=== PATIENT | male | born 1990 | race Caucasian/White ===

== ENCOUNTER → 2018-06-25 | Outpatient (CLI) | payer OTHER ==
[2018-06-25 10:24] LABS: BASO # 0.1 10^3/uL (0.0-0.2); BASO % 1.3 % (0.0-1.0); EOS # 0.1 10^3/uL (0.0-0.50); EOS % 1.7 % (0.0-3.0); HEMATOCRIT 50.3 % (42.0-52.0); HEMOGLOBIN 17.1 g/dl (13.5-17.5); IMMATURE GRANULOCYTE % 0.2 % (0-3.0); LYMPH # 1.2 10^3/uL (1.5-4.5); LYMPH % 25.1 % (24.0-44.0); MEAN CORPUSCULAR HEMOGLOBIN 30.2 pg (27.0-33.0); MEAN CORPUSCULAR VOLUME 88.9 fl (80.0-96.0); MONO # 0.6 10^3/uL (0.0-0.8); MONO % 12.7 % (0.0-5.0); NEUTROPHILS # 2.8 10^3/uL (1.8-7.7); PLATELET COUNT, AUTOMATED 225 10^3/uL (150-450); RED BLOOD COUNT 5.66 10^6/uL (4.30-6.10); RED CELL DISTRIBUTION WIDTH 11.8 % (11.5-14.5); WHITE BLOOD COUNT 4.8 10^3/uL (4.0-10.0)
[2018-06-25 10:54] LABS: ANION GAP 5 MEQ/L (8-16); BLOOD UREA NITROGEN 12 MG/DL (7-18); CALCIUM LEVEL 9.2 MG/DL (8.5-10.1); CARBON DIOXIDE LEVEL 32 MEQ/L (21-32); CHLORIDE LEVEL 107 MEQ/L (98-107); CREATININE FOR GFR 1.01 MG/DL (0.70-1.30); FERRITIN 75 NG/ML (26-388); GLOMERULAR FILTRATION RATE > 60.0 (>60); GLUCOSE, FASTING 85 MG/DL (70-100); IRON (FE) 89 UG/DL (65-175); PERCENT SATURATION 32.6 % (19.7-50.0); POTASSIUM SERUM 4.9 MEQ/L (3.5-5.1); SODIUM LEVEL 144 MEQ/L (136-145); TOTAL IRON BINDING CAPACITY 273 UG/DL (250-450)
[2018-06-25 11:01] LABS: VITAMIN B12 LEVEL 526 PG/ML
[2018-06-25 11:12] LABS: FOLATE > 24.0 NG/ML
== END ==
LOC: M LAB 09:46
DX: K62.5 Hemorrhage of anus and rectum (principal)
CPT/HCPCS: 82746

== ENCOUNTER 2018-10-07 09:14 | Day surgery (SDC) | payer OTHER ==
[~2018-10-07] VITALS: Ht 160 cm; Wt 66.2 kg
[~2018-10-07 09:14] MED LIST: AIMO70IN SC; AMIT50TA PO; MELA5TAB17 PO; NS 1,000 ML IV ONE; PROC2.5C PR; RELP20TA PO; VITA100067 PO
--- NOTE | 2018-10-07 12:08 | ROOR ---
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 Procedure: Pre-Anesthesia Assessment: - Prior to the procedure, a History and Physical was performed, and patient medications and allergies were reviewed. The patient is competent. The risks and benefits of the procedure and the sedation options and risks were discussed with the patient. All questions were answered and informed consent was obtained. Patient identification and proposed procedure were verified by the physician, the nurse and the anesthesiologist in the procedure room. Mental Status Examination: alert and oriented. Airway Examination: normal oropharyngeal airway and neck mobility. Respiratory Examination: clear to auscultation. CV Examination: normal. Prophylactic Antibiotics: The patient does not require prophylactic antibiotics. Prior Anticoagulants: The patient has taken no previous anticoagulant or antiplatelet agents. ASA Grade Assessment: I - A normal, healthy patient. After reviewing the risks and benefits, the patient was deemed in satisfactory condition to undergo the procedure. The anesthesia plan was to use no sedation or anesthesia. Immediately prior to administration of medications, the patient was re-assessed for adequacy to receive sedatives. The heart rate, respiratory rate, oxygen saturations, blood pressure, adequacy of pulmonary ventilation, and response to care were monitored throughout the procedure. The physical status of the patient was re-assessed after the procedure. The Colonoscope was introduced through the anus and advanced to the descending colon. The flexible sigmoidoscopy was accomplished without difficulty. The patient tolerated the procedure well. Scope insertion time was 2 minutes. Scope withdrawal time was 6 minutes. The total duration of the procedure was 9 minutes. Findings: The perianal and digital rectal examinations were normal. Normal mucosa was found in the proximal sigmoid colon and in the descending colon. Biopsies were taken with a cold forceps for histology. Verification of patient identification for the specimen was done by the physician and nurse using the patient's name, date and medical record number. Estimated blood loss was minimal. Diffuse severe mucosal changes characterized by altered vascularity, erosions, friability, granularity and loss of vascularity were found in the rectum, in the recto-sigmoid colon and in the distal sigmoid colon. Biopsies were taken with a cold forceps for histology. A few small and large-mouthed diverticula were found in the sigmoid colon. There was no evidence of diverticular bleeding. Non-bleeding external and internal hemorrhoids were found during anoscopy. The hemorrhoids were small. Retroflexion in the rectum was not performed due to anatomy. Impression: - Normal mucosa in the proximal sigmoid colon and in the descending colon. Biopsied. - Diffuse severe mucosal changes were found in the rectum, in the recto-sigmoid colon and in the distal sigmoid colon secondary to proctosigmoid colitis. Biopsied. - Mild diverticulosis in the sigmoid colon. There was no evidence of diverticular bleeding. - Non-bleeding external and internal hemorrhoids. Recommendation: - The patient will be observed post-procedure, until all discharge criteria are met. - Patient has a contact number available for emergencies. The signs and symptoms of potential delayed complications were discussed with the patient. Return to normal activities tomorrow. Written discharge instructions were provided to the patient. - Resume previous diet. - Await pathology results. - Based on the biopsy results you will receive a phone call from GI clinic in 2-3 weeks to review the pathology results AND/OR your results will be faxed to your Primary care physician. - Return to primary care physician. Humza Cardoso MD Humza Cardoso MD 10/07/2018 12:07:57 PM This report has been signed electronically. Number of Addenda: 0 Note Initiated On: 10/07/2018 11:39 AM Estimated Blood Loss: Estimated blood loss was minimal.
[2018-10-07 12:14] VITALS: BP 122/82
== END 2018-10-07 12:16 | disposition home or self-care (01) ==
LOC: M OPP 09:14
PROVIDERS: ATTEND Internal Medicine Gastroenterology
DX: K64.8 Other hemorrhoids (principal); K63.89 Other specified diseases of intestine; K57.30 Diverticulosis of large intestine without perforation or abscess without bleeding; K51.30 Ulcerative (chronic) rectosigmoiditis without complications

== ENCOUNTER → 2019-02-18 | Outpatient (REF) | payer OTHER ==
[~2019-02-18] MED LIST changes: -MELA5TAB17 PO; +MELA5TAB31 PO; -NS 1,000 ML IV ONE
[2019-02-18 18:58] LABS: APPEARANCE, URINE CLEAR (CLEAR); BACTERIA, URINE AUTO NEGATIVE (NEGATIVE); BILIRUBIN, URINE AUTO NEGATIVE (NEGATIVE); BLOOD, URINE BLOOD NEGATIVE (NEGATIVE); COLOR, URINE YELLOW (YELLOW); GLUCOSE, URINE (UA) AUTO NEGATIVE (NEGATIVE); KETONE, URINE AUTO NEGATIVE (NEGATIVE); LEUKOCYTE ESTERASE, URINE AUTO NEGATIVE (NEGATIVE); NITRITE, URINE AUTO NEGATIVE (NEGATIVE); PROTEIN, URINE AUTO NEGATIVE (NEGATIVE); RBC, URINE AUTO 2 /HPF (0-3); SPECIFIC GRAVITY URINE AUTO 1.021 (1.002-1.035); SQUAMOUS EPITHELIAL CELL UR AU 0 /HPF (0-6); WBC, URINE AUTO 0 /HPF (0-3)
== END ==
LOC: M SMT 18:08
PROVIDERS: ATTEND Nurse Practitioner Women's Health
DX: R35.0 Frequency of micturition (principal)

== ENCOUNTER → 2019-03-04 | Outpatient (CLI) | payer OTHER ==
[~2019-03-04] MED LIST changes: +GABA600T4 PO; +MYRB50TA PO; +TAMS1CAP17 PO; +VENL-115 PO
[2019-03-04 13:29] LABS: MEAN CORPUSCULAR HEMOGLOBIN 31.6 pg (27.0-33.0); MEAN CORPUSCULAR HGB CONC 33.9 g/dl (32.0-36.5); MEAN CORPUSCULAR VOLUME 93.3 fl (80.0-96.0); PLATELET COUNT, AUTOMATED 196 10^3/uL (150-450); WHITE BLOOD COUNT 5.9 10^3/uL (4.0-10.0)
[2019-03-04 13:39] LABS: BLOOD UREA NITROGEN 16 MG/DL (7-18); CALCIUM LEVEL 9.4 MG/DL (8.5-10.1); CARBON DIOXIDE LEVEL 32 MEQ/L (21-32); CHLORIDE LEVEL 104 MEQ/L (98-107); CREATININE FOR GFR 0.99 MG/DL (0.70-1.30); GLOMERULAR FILTRATION RATE > 60.0 (>60); GLUCOSE, FASTING 77 MG/DL (70-100); HEMATOCRIT 51.3 % (42.0-52.0); HEMOGLOBIN 17.4 g/dl (13.5-17.5); POTASSIUM SERUM 4.5 MEQ/L (3.5-5.1); SODIUM LEVEL 141 MEQ/L (136-145)
[2019-03-04 14:05] LABS: INR 1.03; PARTIAL THROMBOPLASTIN TIME 33.1 SECONDS (25.0-38.4); PROTHROMBIN TIME 13.2 SECONDS (11.8-14.0)
== END ==
LOC: M SMT 10:21
PROVIDERS: ATTEND Nurse Practitioner Women's Health
DX: Z01.812 Encounter for preprocedural laboratory examination (principal); N20.0 Calculus of kidney

== ENCOUNTER 2019-03-19 06:13 | Day surgery (SDC) | payer OTHER ==
[~2019-03-19] VITALS: Ht 160 cm; Wt 64.8 kg
[~2019-03-19 06:13] MED LIST changes: +LR 1,000 ML IV ONE
[2019-03-19] MEDS ORDERED: LIDOCAINE 2% INJ 100 MG/5 ML SDV (FOR ANES.) As Ordered ONE (06:56)
[2019-03-19] MEDS ORDERED: PROPOFOL 500 MG/50 ML VIAL As Ordered ONE (06:56)
[2019-03-19] MEDS ORDERED: MIDAZOLAM INJ 2 MG/2 ML VIAL (J2250) As Ordered ONE (06:57)
[2019-03-19] MEDS ORDERED: fentaNYL 100 MCG/2 ML INJECTION (J3010) As Ordered ONE (06:57)
[2019-03-19] MEDS ORDERED: fentaNYL 100 MCG/2 ML INJECTION (J3010) IV PRN (08:30)
[2019-03-19] MEDS ORDERED: ONDANSETRON 4MG/2ML VIAL (J2405) IV PRN (08:30)
[2019-03-19] MEDS ORDERED: PERCOCET 5MG/325MG TAB PO PRN (08:30)
[2019-03-19] MEDS ORDERED: LR 1,000 ML IV SCH (08:30)
[2019-03-19 08:50] VITALS: BP 118/77
--- NOTE | 2019-03-19 09:59 | REP ---
REASON: History of renal calculi. Intestinal content obscures the nephric silhouettes for the most part, right greater than left. Seen on the right possibly within or at least superimposed over the right nephric silhouette there is a 9 mm sized dense focus. There are bilateral pelvic phleboliths. The intestinal gas pattern is nonspecific. The imaged osseous structures are within normal limits. IMPRESSION: Possible right nephrolith as described above. Consider noncontrast enhanced stone protocol CT if clinically relevant. Electronically Signed by Jerome Steve DO 03/19/2019 03:28 P
--- NOTE | 2019-03-21 00:25 | RO ---
DATE OF PROCEDURE: 03/19/2019 PREPROCEDURE DIAGNOSIS: Right kidney stone. POSTPROCEDURE DIAGNOSIS: Right kidney stone. PROCEDURE: Right extracorporeal shock wave lithotripsy. SURGEON: Dr. Mauro Pimentel WOOD PREPARATION SUPERVISOR: None. ANESTHESIA: Monitored anesthesia care (MAC). OPERATIVE INDICATIONS: This is a 28-year-old male who was found to have an 8 mm nonobstructing right kidney stone recently on CT scan. He was brought to the operating room today for the above listed procedure. DESCRIPTION OF PROCEDURE: The patient was brought to the operating room and MAC anesthesia was administered. Prophylactic antibiotics were infused. He was then placed in the supine position in preparation for a right-sided extracorporeal shock wave lithotripsy. Fluoroscopy was utilized to monitor stone position and fragmentation throughout the procedure. Shock waves were then delivered to the right-sided kidney stone ungated. There were no arrhythmias. The stone did appear to fragment well. After 2500 shocks, the procedure was concluded. The patient was then awakened from anesthesia and transported to the recovery room in stable condition. Estimated blood loss: 0 mL. Complications: None. Specimens: None. Plan: The patient will followup in the clinic in a few weeks with imaging prior to assess for residual stone burden.
== END 2019-03-19 09:04 | disposition home or self-care (01) ==
LOC: M SDC 06:13
PROVIDERS: ATTEND Urology
DX: N20.0 Calculus of kidney (principal); N40.0 Benign prostatic hyperplasia without lower urinary tract symptoms; J45.909 Unspecified asthma, uncomplicated; N32.81 Overactive bladder; Z79.899 Other long term (current) drug therapy
CPT/HCPCS: 50590; 74018; J0690; J2250; J3010

== ENCOUNTER → 2019-04-02 | Outpatient (CLI) | payer OTHER ==
[~2019-04-02] MED LIST changes: -LR 1,000 ML IV ONE
--- NOTE | 2019-04-02 21:49 | REP ---
Clinical: Nephrolithiasis. Technique: Single supine view of the abdomen and pelvis. Comparison: 03/19/2019. Findings: Evaluation of the urinary tract system is significantly limited due to overlying bowel gas, fecal material and technique. Intrarenal calculi cannot be excluded. Calcifications in the pelvis remains stable and likely represent phleboliths. No organomegaly. Skeletal structures are intact. Impression: Severely limited evaluation for urinary tract calcifications. Electronically Signed by Vince Cerrato MD 04/02/2019 09:41 P
[2019-04-11 14:07] LABS: COMMENT Note: (.); Ca Ox Monohydrate 85 % (.)
== END ==
LOC: M SMT 08:35
PROVIDERS: ATTEND Nurse Practitioner Family
DX: N20.0 Calculus of kidney (principal)